=== PATIENT | male | born 1970 | race Caucasian/White ===

== ENCOUNTER 2016-09-28 09:53 | Emergency (ER) | payer BC ==
[2016-09-28 10:36] VITALS: RESP 15; TEMP 96.5
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
== END 2016-09-28 11:06 | disposition home or self-care (01) ==
LOC: ER 09:53
DX: L03.116 Cellulitis of left lower limb (principal); B35.3 Tinea pedis; R22.42 Localized swelling, mass and lump, left lower limb
CPT/HCPCS: 99282